=== PATIENT | male | born 1965 | race Caucasian/White ===

== ENCOUNTER 2023-04-26 09:38 | Outpatient (RCR) | payer OTHER, SELFPAY | END 2023-04-26 23:59 | disposition home or self-care (01) | LOC: CRHB 09:38 | PROVIDERS: ATTENDING PHYSICIAN Internal Medicine Cardiovascular Disease | DX: I25.10 Atherosclerotic heart disease of native coronary artery without angina pectoris (principal); Z95.5 Presence of coronary angioplasty implant and graft | CPT/HCPCS: 93797; 93798; G0422; G0423 ==

== ENCOUNTER 2023-05-22 09:26 | Outpatient (RCR) | payer OTHER, SELFPAY | END 2023-05-22 23:59 | disposition home or self-care (01) | LOC: CRHB 09:26 | PROVIDERS: ATTENDING PHYSICIAN Internal Medicine Cardiovascular Disease | DX: I25.10 Atherosclerotic heart disease of native coronary artery without angina pectoris (principal); Z95.5 Presence of coronary angioplasty implant and graft | CPT/HCPCS: 93797; 93798 ==

== ENCOUNTER 2023-06-07 09:35 | Outpatient (RCR) | payer OTHER, SELFPAY | END 2023-06-07 23:59 | disposition home or self-care (01) | LOC: CRHB 09:35 | PROVIDERS: ATTENDING PHYSICIAN Internal Medicine Cardiovascular Disease; FAMILY PHYSICIAN Family Medicine | DX: I25.10 Atherosclerotic heart disease of native coronary artery without angina pectoris (principal); Z95.5 Presence of coronary angioplasty implant and graft | CPT/HCPCS: 93798 ==

== ENCOUNTER 2023-10-24 08:03 | Emergency (ER) | payer OTHER, SELFPAY ==
[2023-10-24 08:11] VITALS: BP 135/96
--- NOTE | 2023-10-24 08:53 | ED.GENMED ---
History of Present Illness
General
Chief Complaint: Skin Problem
Source: patient
Exam Limitations: none
Time Seen by Provider: 10/24/23 08:44
History of Present Illness
History of Present Illness:
57-year-old male presents with 2 days worth of worsening redness and discomfort to the right medial calf. He states he scratched his heel several days prior to this. He has a history of cellulitis resulting in sepsis. He also has a history of
recent antibiotic use secondary to ruptured bowel and resultant C. difficile. He denies chest pain fevers or chills. He is on aspirin and Plavix. He notes 2 weeks ago he flew back and forth to [place]. [address] trip is about an hour and a half.
No other complaints
Past History
Past History
ED Past Medical History: CAD and HTN
ED Past Surgical History: Cardiac
Social History
Tobacco: Non-smoker
Alcohol: None
Drug: None
Personal:
Living: with family
Employment: Employed
Phy Exam
Physical Exam
Physical Exam:
General: Well-appearing male no acute distress
HEENT: Normocephalic atraumatic
Heart: Regular rate and rhythm no murmurs
Lungs: Clear no wheeze
Extremities: No cyanosis or edema.
Skin: Subtle erythema and tender to the touch of the right medial calf. There is a firm, somewhat nodular structure to the right medial calf
Vascular: 2+ dorsalis pedis pulse right
Course
Orders/Labs/Results
Orders:
Orders
10/24/23 08:52
Venous Doppler Lwr Ext Rt [US Perip Venous LOWER Ext RT] Urgent
Comment:
Reason For Exam: pain, medial calf
Vital Signs
Initial and Last Documented VS:
Initial Vital Signs
Temp Pulse Resp BP Pulse Ox
97.9 F 94 18 135/96 95
10/24/23 08:11 10/24/23 08:11 08/27/24 08:11 10/24/23 08:11 10/24/23 08:11
Last Documented Vital Signs
Temp Pulse Resp BP Pulse Ox
97.9 F 80 16 124/84 95
10/24/23 08:11 10/24/23 09:33 10/24/23 09:33 10/24/23 09:33 10/24/23 09:33
MDM/Problems Addressed
Differential Diagnosis Includes:
Right calf pain and erythema. Patient with history of cellulitis, consider this versus phlebitis versus DVT
Ultrasound pending.
*Critical Care Note
Total Time (30-74mins, 75-104mins- exclusive of procedures): Not Applicable
Update Note
Update Note:
Ultrasound negative for DVT. Reassured patient. Based on clinical exam I suspect superficial phlebitis. There is no evidence of this however on ultrasound. Recommended warm compresses and NSAIDs. secondary to history of cellulitis causing
sepsis and admission to hospital, Keflex in the event his redness and pain gets worse. However would not like him to start it right away due to his history of C. difficile. Patient understood this. Return precautions are given. Stable for
discharge will provide a prescription
ED Attending Note
-
Portions of this chart may have been created with voice recognition software.� Occasional wrong word or��sound alike� substitutions may have occurred due to the inherent limitations of voice recognition software.
Discharge Plan
Departure
Patient Disposition: Home (Routine Discharge)
Date of Disposition: 10/24/23
Time of Disposition: 11:11
Patient with high blood pressure during this ER visit?: No
Discharge Problem:
Phlebitis
Instructions: Superficial vein phlebitis and thrombosis
Prescriptions:
New
doxycycline hyclate 100 mg capsule
100 mg PO BID Qty: 14 0RF
No Action
atorvastatin 80 mg Tablet
80 mg PO DAILY
nifedipine 30 mg Tablet Extended Release
30 mg PO DAILY
tamsulosin 0.4 mg Capsule
0.8 mg PO HS
metoprolol succinate 25 mg Tablet Extended Release 24 Hr
25 mg PO DAILY
valsartan 160 mg Tablet
160 mg PO DAILY
ioxqtxypyaeb-igdvplwx-nkmtns Tablet
1 tab PO DAILY
Saccharomyces boulardii [Florastor] 250 mg Capsule
500 mg PO BID
cholecalciferol (vitamin D3) [Vitamin D3] 25 mcg (1,000 unit) Tablet
25 mcg PO DAILY
omega 1-eay-vsk-fish oil 900-1,400 mg Capsule,Delayed Release(Dr/Ec)
1 cap PO DAILY
aspirin 81 mg Capsule
81 mg PO DAILY
clopidogrel 75 mg Tablet
75 mg PO DAILY Qty: 90 5RF
nitroglycerin [nitroglycerin] 0.4 mg tablet, sublingual
0.4 mg sublingual [id number] PRN (Reason: chest pain) Qty: 25 5RF
Referrals:
Brock Hopson Jr., DO [Family Provider] -
Activity Restrictions/Additional Instructions:
Use warm compresses and anti-inflammatories. A prescription for antibiotics was prescribed. Please take this if your symptoms start getting worse. Return here for develop a fever increased redness or swelling or pain.
Interventions
Interventions:
*Risk Screen - Suicide Last Done: 10/24/23 08:11
*General Assessment Last Done: 10/24/23 08:11
*Neglect/Abuse Screening Last Done: 10/24/23 08:11
ED- Fall Risk Assessment Last Done: 10/24/23 09:33
*ED COVID-19 Vaccine History Last Done: 10/24/23 09:35
ED-Skin Assessment Last Done: 10/24/23 09:33
Discharge Date and Time
Print Language: SUDANESE
[2023-10-24 09:32] VITALS: BMI 32.3
[2023-10-24 09:33] VITALS: BP 124/84
== END 2023-10-24 11:20 | disposition home or self-care (01) ==
LOC: EMR 08:03
PROVIDERS: EMERGENCY PHYSICIAN Emergency Medicine; FAMILY PHYSICIAN Family Medicine
DX: I80.9 Phlebitis and thrombophlebitis of unspecified site (principal); I25.10 Atherosclerotic heart disease of native coronary artery without angina pectoris; I10 Essential (primary) hypertension; Z79.02 Long term (current) use of antithrombotics/antiplatelets; Z79.82 Long term (current) use of aspirin
CPT/HCPCS: 99284; 93971

== ENCOUNTER 2024-07-12 12:48 | Emergency (ER) | payer OTHER, SELFPAY ==
[2024-07-12 12:52] VITALS: BP 169/115
--- NOTE | 2024-07-12 13:37 | ED.GENMED ---
History of Present Illness
General
Chief Complaint: Musculo-Skeletal Complaint
Time Seen by Provider: 07/12/24 13:36
History of Present Illness
History of Present Illness:
TIME OF INITIAL ENCOUNTER: 1:40 PM
HPI: Yesterday, the patient awoke with a knot in the left periscapular region. He happened to have a chiropractic appointment already and had a deep tissue massage at the affected area. However today, he woke with rather significant asymmetric
swelling to the inferolateral aspect of the left side of the neck. He has some vague discomfort in that area. He spoke to his friend/physician who recommended coming here for further evaluation.
EXAM:
GENERAL: Well appearing in no distress
HEENT: Moist oral mucosa
NEUROLOGIC: Excellent strength all extremities, no coordination deficits
PSYCHIATRIC: Appropriate mental status, normal insight and judgement
EXTREMITIES: Nontender, no edema, moves all extremities equally
SKIN: No rash, no lesions
BACK: Some tightness to the musculature noted to the supraspinatus musculature
NECK: There is soft tissue swelling to the left side of the inferolateral neck but no palpable abscess and no palpable lymph nodes
NUMBER AND COMPLEXITY OF PROBLEMS ADDRESSED AT THE ENCOUNTER
� Chronic conditions affecting care: Frequent headaches, asthma, CAD, high blood pressure, kidney stones
� Acute Exacerbation and/or Progression of Chronic Illness: This is an acute problem
� Differential Diagnosis includes: Serous effusion from deep tissue massage, lymphoma very unlikely, dissection very unlikely as there was no HVLA
AMOUNT AND/OR COMPLEXITY OF DATA TO BE REVIEWED AND ANALYZED
� I performed an independent evaluation of and my interpretation is:
EKG:
CT: I personally viewed CT imaging and agree with radiologist interpretation
X-rays:
Laboratory Studies: White count and hemoglobin are normal, chemistries unremarkable, CT imaging suggests inflammation/hematoma involving at or near the scalene on the left side.
Other:
� Review of other/old records: I reviewed records, the patient has coronary disease/had bypass and is on aspirin and Plavix
� Clinical information was obtained by an independent historian: None needed
� Prescriptions/Medications Considered but not given:
� Further testing considered but not performed:
RISK OF COMPLICATIONS AND/OR MORBIDITY OR MORTALITY OF PATIENT MANAGEMENT
� Social determinants of health affecting care: Lives at home
� Discussion with other providers:
� Escalation of care including admission/observation vs risk of discharge considered: Given the acute rather asymmetrical left-sided neck swelling, will obtain CT imaging.
ANY OTHER UPDATES:
CT imaging reviewed. He appears comfortable at time of discharge.
Past History
Past History
ED Past Medical History: CAD and HTN
ED Past Surgical History: Cardiac
Social History
Tobacco: Non-smoker
Alcohol: None
Drug: None
Personal:
Living: with family
Employment: Employed
Phy Exam
Physical Exam
Physical Exam:
See HPI
Course
Orders/Labs/Results
Orders:
Orders
07/12/24 13:47
CT Neck With Iv Contrast Urgent
Comment:
Reason For Exam: L neck swelling after chiropractic manipulation
07/12/24 13:53
Basic Metabolic Panel Urgent
Complete Blood Count/With Diff Urgent
Abnormal Lab Results
07/12/24
13:53
Absolute Neuts (auto) 6.8 H 10^3/uL
(1.4-6.5)
Neutrophils % 77.1 H %
(42.2-75.2)
Lymphocytes % 14.4 L %
(20.5-51.1)
Glucose 110 H mg/dl
(70-99)
07/12/24 13:53
07/12/24 13:53
Vital Signs
Initial and Last Documented VS:
Initial Vital Signs
Temp Pulse Resp BP Pulse Ox
36.7 C 97 18 169/115 99
07/12/24 12:52 07/12/24 12:52 07/12/24 12:52 07/12/24 12:52 07/12/24 12:52
Last Documented Vital Signs
Temp Pulse Resp BP Pulse Ox
36.7 C 76 16 147/109 97
07/12/24 12:52 07/12/24 16:37 07/12/24 16:37 07/12/24 16:37 07/12/24 16:37
*Critical Care Note
Total Time (30-74mins, 75-104mins- exclusive of procedures): Not Applicable
ED Attending Note
-
Portions of this chart may have been created with voice recognition software.� Occasional wrong word or��sound alike� substitutions may have occurred due to the inherent limitations of voice recognition software.
Discharge Plan
Departure
Patient Disposition: Home (Routine Discharge)
Date of Disposition: 07/12/24
Time of Disposition: 17:34
Patient with high blood pressure during this ER visit?: Yes
Discharge Problem:
Hematoma
Instructions: BLOOD PRESSURE, Hematoma
Prescriptions:
No Action
atorvastatin 80 mg Tablet
80 mg PO DAILY
nifedipine 30 mg Tablet Extended Release
30 mg PO DAILY
tamsulosin 0.4 mg Capsule
0.8 mg PO HS
metoprolol succinate 25 mg Tablet Extended Release 24 Hr
25 mg PO DAILY
valsartan 160 mg Tablet
160 mg PO DAILY
ghahzjxcwdbm-tfgijbnt-bysufm Tablet
1 tab PO DAILY
Saccharomyces boulardii [Florastor] 250 mg Capsule
500 mg PO BID
cholecalciferol (vitamin D3) [Vitamin D3] 25 mcg (1,000 unit) Tablet
25 mcg PO DAILY
omega 7-xjr-znk-fish oil 900-1,400 mg Capsule,Delayed Release(Dr/Ec)
1 cap PO DAILY
aspirin 81 mg Capsule
81 mg PO DAILY
clopidogrel 75 mg Tablet
75 mg PO DAILY Qty: 90 5RF
nitroglycerin [nitroglycerin] 0.4 mg tablet, sublingual
0.4 mg sublingual [id number] PRN (Reason: chest pain) Qty: 25 5RF
doxycycline hyclate 100 mg capsule
100 mg PO BID Qty: 14 0RF
vancomycin 125 mg capsule
125 mg PO QID Qty: 20 0RF
Referrals:
UNKNOWN - PT DOES,NOT KNOW [Family Provider] -
Activity Restrictions/Additional Instructions:
CAT scan of the neck shows left supraclavicular inflammatory fat stranding which is likely posttraumatic in the setting of recent chiropractic manipulation. Some asymmetric enlargement and inflammation of the left scalene musculature suggesting
muscle strain and/or mild intramuscular hematoma. Return here if worse or other concerns.
Interventions
Interventions:
*Risk Screen - Suicide Last Done: 07/12/24 12:52
*General Assessment Last Done: 07/12/24 12:52
*Nursing Disposition Last Done: 07/12/24 17:49
ED-Musculoskeletal Assessment Last Done: 07/12/24 14:05
Discharge Date and Time
Discharge Date/Time: 07/12/24 17:50
Print Language: ITALIAN
[2024-07-12 14:12] LABS: % Basophils 0.6 % (0-2); % Eosinophils 0.9 % (0-6); % Immature Granulocytes 0.3 % (0-0.5); % Lymphocytes 14.4 % (20.5-51.1); % Monocytes 6.7 % (1.7-9.3); % Neutrophils 77.1 % (42.2-75.2); Absolute Basophils 0.1 10^3/uL (0-0.2); Absolute Eosinophils 0.1 10^3/uL (0-0.7); Absolute Lymphocytes 1.3 10^3/uL (1.2-3.4); Absolute Monocytes 0.6 10^3/uL (0.1-0.6); Absolute Neutrophils 6.8 10^3/uL (1.4-6.5); Hematocrit 44.9 % (39.0-52.0); Hemoglobin 15.2 g/dL (13.0-18.0); Mean Corp Hgb Conc. 33.9 g/dL (33.0-37.0); Mean Corpuscular Hgb 28.3 pg (27.0-31.0); Mean Corpuscular Volume 83.6 fL (80.0-94.0); Mean Platelet Volume 9.3 fL (7.4-10.4); Nucleated Red Blood Cells % 0 % (-); Platelet Count 260 10^3/uL (130-400); Red Blood Cell Count 5.37 10^6/uL (4.70-6.10); Red Cell Dist. Width 13.7 % (11.5-14.5); White Blood Cell Count 8.8 10^3/uL (4.8-10.8)
[2024-07-12 14:34] LABS: Blood Urea Nitrogen 19 mg/dl (9-20); Calcium 9.4 mg/dl (8.4-10.2); Carbon Dioxide 29 mmol/L (22-30); Chloride 105 mmol/L (98-107); Glucose 110 mg/dl (70-99); Potassium 4.3 mmol/L (3.5-5.1); Sodium 139 mmol/L (135-145); eGFR > 60.00
[2024-07-12 16:37] VITALS: BP 147/109
== END 2024-07-12 17:50 | disposition home or self-care (01) ==
LOC: EMR 12:48
PROVIDERS: EMERGENCY PHYSICIAN Emergency Medicine
DX: S10.83XA Contusion of other specified part of neck, initial encounter (principal); X58.XXXA Exposure to other specified factors, initial encounter; I10 Essential (primary) hypertension; I25.10 Atherosclerotic heart disease of native coronary artery without angina pectoris; J45.909 Unspecified asthma, uncomplicated
CPT/HCPCS: 99284; 70491; 80048; 85025; Q9967

== ENCOUNTER → 2025-02-11 10:59 | Outpatient (REF) | payer OTHER, SELFPAY | LOC: HWRCS 10:59 | PROVIDERS: ATTENDING PHYSICIAN Internal Medicine Cardiovascular Disease; FAMILY PHYSICIAN Family Medicine | DX: Z95.5 Presence of coronary angioplasty implant and graft (principal); E78.5 Hyperlipidemia, unspecified; R00.2 Palpitations | CPT/HCPCS: 78452; 93017; A9500 ==